=== PATIENT | male | born 1990 | race Caucasian/White ===

== ENCOUNTER 2021-11-05 19:09 | Inpatient (IN) | payer OTHER ==
[~2021-11-05] VITALS: Ht 175.3 cm; Wt 59.0 kg
[2021-11-05 20:25] LABS: BASOPHILS # (AUTO) 0.1 K/uL (0.0-0.2); BASOPHILS % (AUTO) 0.5 % (0.0-2.0); EOSINOPHILS % (AUTO) 0.1 % (0.0-6.0); HEMATOCRIT 49 % (39-51); HEMOGLOBIN 16.5 g/dL (13.5-17.5); LYMPHOCYTES # (AUTO) 0.7 K/uL (0.8-4.8); LYMPHOCYTES % (AUTO) 3.3 % (20.0-44.0); MEAN CORPUSCULAR HGB CONC 34 g/dl (31.0-36.0); MEAN CORPUSCULAR VOLUME 84 fL (80-96); MONOCYTES # (AUTO) 1.8 K/uL (0.1-1.30); MONOCYTES % (AUTO) 8.4 % (2.0-12.0); NEUTROPHILS # (AUTO) 18.7 K/uL (1.8-8.9); NEUTROPHILS % (AUTO) 87.7 % (43.0-81.0); PLATELET COUNT (AUTO) 434 K/uL (150-450); RED BLOOD CELL COUNT(AUTO) 5.85 MIL/uL (4.5-6.0); WHITE BLOOD COUNT (AUTO) 21.4 K/uL (4.3-11.0)
[2021-11-05] MEDS ORDERED: IV LR 1000 ML 1,000 ML IV ONE ×2 (20:30→21:00)
[2021-11-05 20:34] LABS: ABG PCO2 27.7 mmHg (35.0-45.0); ABG PH 7.458 (7.350-7.450); COHb 0.4 % (0.5-1.5); MetHb 0.5 % (0.0-1.5); O2Hb 77.9 % (94.0-97.0); VENT MODE, BG ROOM AIR
[2021-11-05 20:46] LABS: ALANINE AMINOTRANSFERASE 28 U/L (12-78); ALBUMIN 4.2 g/dL (3.4-5.0); ALKALINE PHOSPHATASE 76 U/L (46-116); ASPARTATE AMINOTRANSFERASE 37 U/L (15-37); BILIRUBIN,DIRECT 0.1 mg/dL (0.0-0.2); BILIRUBIN,TOTAL 0.9 mg/dL (0.2-1.0); CALCIUM, SERUM 10.1 mg/dL (8.5-10.1); CARBON DIOXIDE 22 mmol/L (21-32); CHLORIDE 94 mmol/L (98-107); CREATININE 3.4 mg/dL (0.6-1.3); GLUCOSE 283 mg/dL (74-106); LIPASE 51 U/L (73-393); POTASSIUM 3.6 mmol/L (3.5-5.1); SODIUM SERUM 142 mmol/L (136-145); TOTAL PROTEIN, SERUM 8.3 g/dL (6.4-8.2); UREA NITROGEN, BLOOD 73 mg/dL (7-18)
[2021-11-05] MEDS ORDERED: ONDANSETRON HCL/PF 4 MG/2 ML VIAL ONE (21:24)
[2021-11-05] MEDS ORDERED: CEFTRIAXONE 1GM BAG (ER ONLY) 1 GM/50 ML PIGGYBACK IV ONE (21:30)
[2021-11-05] MEDS ORDERED: ONDANSETRON HCL/PF - ER 4 MG/2 ML VIAL IV ONE (21:30)
[2021-11-05 21:34] LABS: BILIRUBIN,URINE MODERATE (NEGATIVE); COLOR,URINE YELLOW (YELLOW); LEUKOCYTE ESTERASE ,URINE NEGATIVE (NEGATIVE); NITRITE, URINE NEGATIVE (NEGATIVE); PROTEIN,URINE >=300 mg/dl (NEGATIVE); UGLUCOSE 500 MG/DL mg/dL (NEGATIVE); UROBILINOGEN,URINE 0.2 EU/dL (0.2)
[2021-11-05] MEDS ORDERED: ASPIRIN 325 MG TABLET PO ONE (22:00)
[2021-11-05] MEDS ORDERED: ASPIRIN 325 MG TABLET ONE (22:04)
[2021-11-05 22:09] LABS: BACTERIA,URINE RARE /HPF (None Seen); RBC,URINE 21-50 /HPF (0-2); SQUAMOUS EPITHELIAL CELL,UR 0-2 /HPF (None Seen); WBC,URINE 0-2 /HPF (0-3)
[2021-11-05 22:10] LABS: HYALINE CASTS, URINE Few /LPF (None Seen); MUCUS,URINE Few /LPF (None Seen); URINE AMORPHOUS URATE Few /HPF (None Seen)
[2021-11-05] MEDS ORDERED: MORPHINE SULFATE INJ 2 MG/ML DISP.SYRIN IV PRN (22:30)
[2021-11-05] MEDS ORDERED: DEXTROSE 50%-WATER 50 ML DISP.SYRIN IV PRN (22:30)
[2021-11-05] MEDS ORDERED: INSULIN REGULAR, HUMAN 100 UNIT/ML 3 ML VIAL SQ PRN (22:30)
[2021-11-05] MEDS ORDERED: ACETAMINOPHEN 325 MG TABLET PO PRN (22:30)
[2021-11-06] MEDS: BLOOD SUGAR DIAGNOSTIC 1 EACH STRIP IN SCH ×3 (00:10→12:09)
[2021-11-06] MEDS ORDERED: INSULIN REGULAR, HUMAN 100 UNIT/ML 10 ML VIAL ONE (00:35)
[2021-11-06] MEDS ORDERED: INSULIN GLARGINE, 100 UNIT/ML CARTRIDGE SQ ONE (00:41)
[2021-11-06] MEDS: INSULIN GLARGINE, 100 UNIT/ML CARTRIDGE SQ SCH ×3 (00:55→17:53)
[2021-11-06] MEDS ORDERED: DEXTROSE 50%-WATER 50 ML DISP.SYRIN IV PRN (01:00)
[2021-11-06] MEDS: *INSULIN REGULAR(HUMULIN R)HUM 100 UNIT/ML VIAL SQ PRN ×4 (01:00→22:09)
[2021-11-06 01:10] VITALS: BP 146/90
[2021-11-06] MEDS: IV NS 0.9% 1,000 ML IV SCH ×3 (01:52→09:48)
[2021-11-06] MEDS: BLOOD SUGAR DIAGNOSTIC 1 EACH STRIP VI SCH ×5 (01:53→22:05)
[2021-11-06 02:26] LABS: ALBUMIN 3.4 g/dL (3.4-5.0); BILIRUBIN,TOTAL 0.7 mg/dL (0.2-1.0); CREATININE 3.1 mg/dL (0.6-1.3); TOTAL PROTEIN, SERUM 6.9 g/dL (6.4-8.2)
[2021-11-06] MEDS: ONDANSETRON HCL/PF 4 MG/2 ML VIAL IVP PRN ×2 (03:08→10:01)
[2021-11-06 07:02] LABS: BASOPHILS % (AUTO) 0.1 % (0.0-2.0); HEMATOCRIT 43 % (39-51); HEMOGLOBIN 14.6 g/dL (13.5-17.5); LYMPHOCYTES # (AUTO) 0.7 K/uL (0.8-4.8); LYMPHOCYTES % (AUTO) 4.2 % (20.0-44.0); MEAN CORPUSCULAR HGB CONC 34 g/dl (31.0-36.0); MEAN CORPUSCULAR VOLUME 84 fL (80-96); MONOCYTES # (AUTO) 2.3 K/uL (0.1-1.30); MONOCYTES % (AUTO) 13.2 % (2.0-12.0); NEUTROPHILS # (AUTO) 14.5 K/uL (1.8-8.9); NEUTROPHILS % (AUTO) 82.5 % (43.0-81.0); PLATELET COUNT (AUTO) 329 K/uL (150-450); RED BLOOD CELL COUNT(AUTO) 5.15 MIL/uL (4.5-6.0); WHITE BLOOD COUNT (AUTO) 17.6 K/uL (4.3-11.0)
[2021-11-06 08:00] VITALS: BP 144/96
[2021-11-06 08:57] LABS: ALBUMIN 3.5 g/dL (3.4-5.0); BILIRUBIN,TOTAL 0.7 mg/dL (0.2-1.0); CALCIUM, SERUM 9.3 mg/dL (8.5-10.1); CREATININE 2.7 mg/dL (0.6-1.3); MAGNESIUM 2.6 mg/dL (1.8-2.4); PHOSPHORUS 1.9 mg/dL (2.5-4.9); POTASSIUM 3.3 mmol/L (3.5-5.1)
[2021-11-06] MEDS ORDERED: INSU100I26 SQ (09:06)
[2021-11-06] MEDS ORDERED: INSU100V36 SQ (09:06)
[2021-11-06] MEDS: HEPARIN SODIUM, PORCINE 5000 UNITS/1 ML VIAL SQ SCH ×2 (10:08→21:00)
[2021-11-06] MEDS ORDERED: METOCLOPRAMIDE HCL 10 MG/2 ML VIAL IV PRN (12:30)
[2021-11-06] MEDS ORDERED: K PHOS NEUTRAL 250 MG TABLET PO ONE (15:30)
[2021-11-06] MEDS: IV NS 0.9% 1,000 ML IV PRN (18:04)
[2021-11-06 20:32] VITALS: BP 151/96
[2021-11-06] MEDS: METOCLOPRAMIDE HCL 10 MG/2 ML VIAL IV PRN (23:34)
[2021-11-07] VITALS: BP_SYST 150
[2021-11-07] MEDS: ZOLPIDEM TARTRATE 5 MG TABLET PO PRN (01:21)
[2021-11-07 04:43] VITALS: BP 148/94
[2021-11-07] MEDS: IV NS 0.9% 1,000 ML IV PRN (04:55)
[2021-11-07] MEDS: BLOOD SUGAR DIAGNOSTIC 1 EACH STRIP VI SCH ×4 (06:03→21:38)
[2021-11-07] MEDS: IV D5/0.45 NACL 1,000 ML IV PRN ×2 (06:29→18:54)
[2021-11-07 06:35] LABS: BASOPHILS % (AUTO) 0.2 % (0.0-2.0); HEMATOCRIT 40 % (39-51); HEMOGLOBIN 13.5 g/dL (13.5-17.5); LYMPHOCYTES # (AUTO) 0.8 K/uL (0.8-4.8); LYMPHOCYTES % (AUTO) 6.2 % (20.0-44.0); MEAN CORPUSCULAR HGB CONC 34 g/dl (31.0-36.0); MEAN CORPUSCULAR VOLUME 84 fL (80-96); MONOCYTES # (AUTO) 1.6 K/uL (0.1-1.30); MONOCYTES % (AUTO) 13.3 % (2.0-12.0); NEUTROPHILS # (AUTO) 9.9 K/uL (1.8-8.9); NEUTROPHILS % (AUTO) 80.3 % (43.0-81.0); PLATELET COUNT (AUTO) 232 K/uL (150-450); WHITE BLOOD COUNT (AUTO) 12.3 K/uL (4.3-11.0)
[2021-11-07 07:08] LABS: ALBUMIN 2.9 g/dL (3.4-5.0); BILIRUBIN,TOTAL 0.7 mg/dL (0.2-1.0); CALCIUM, SERUM 7.9 mg/dL (8.5-10.1); CREATININE 1.3 mg/dL (0.6-1.3); MAGNESIUM 2.4 mg/dL (1.8-2.4); PHOSPHORUS 3.1 mg/dL (2.5-4.9); POTASSIUM 3.4 mmol/L (3.5-5.1); TOTAL PROTEIN, SERUM 6.4 g/dL (6.4-8.2)
[2021-11-07 08:00] VITALS: BP 156/89
[2021-11-07] MEDS: INSULIN GLARGINE, 100 UNIT/ML CARTRIDGE SQ SCH ×2 (09:00→17:00)
[2021-11-07] MEDS: HEPARIN SODIUM, PORCINE 5000 UNITS/1 ML VIAL SQ SCH ×2 (09:00→21:39)
[2021-11-07] MEDS: POTASSIUM CL. PREMIX PERIPHER. 50 ML IV SCH ×2 (10:20→13:32)
[2021-11-07 12:00] VITALS: BP 146/84
[2021-11-07] MEDS ORDERED: MIDAZOLAM HCL 2 MG/2ML VIAL ONE (12:09)
[2021-11-07 16:00] VITALS: BP 152/92
[2021-11-07] MEDS: INSULIN REGULAR, HUMAN 100 UNIT/ML 3 ML VIAL SQ PRN (16:58)
[2021-11-07] MEDS: METOCLOPRAMIDE HCL 10 MG/2 ML VIAL IV PRN (17:47)
[2021-11-07 20:00] VITALS: BP 142/85
[2021-11-07] MEDS: *INSULIN REGULAR(HUMULIN R)HUM 100 UNIT/ML VIAL SQ PRN (21:40)
[2021-11-08] VITALS: BP 150/96
[2021-11-08] MEDS: ZOLPIDEM TARTRATE 5 MG TABLET PO PRN (02:53)
[2021-11-08 04:00] VITALS: BP_SYST 147; BP_SYST 149; BP_DIAS 97
[2021-11-08] MEDS: IV D5/0.45 NACL 1,000 ML IV PRN (05:30)
[2021-11-08 06:17] LABS: BASOPHILS % (AUTO) 0.4 % (0.0-2.0); EOSINOPHILS % (AUTO) 0.6 % (0.0-6.0); HEMATOCRIT 38 % (39-51); HEMOGLOBIN 12.9 g/dL (13.5-17.5); LYMPHOCYTES # (AUTO) 0.7 K/uL (0.8-4.8); LYMPHOCYTES % (AUTO) 10.1 % (20.0-44.0); MEAN CORPUSCULAR HGB CONC 34 g/dl (31.0-36.0); MEAN CORPUSCULAR VOLUME 84 fL (80-96); MONOCYTES # (AUTO) 0.8 K/uL (0.1-1.30); MONOCYTES % (AUTO) 10.3 % (2.0-12.0); NEUTROPHILS # (AUTO) 5.8 K/uL (1.8-8.9); NEUTROPHILS % (AUTO) 78.6 % (43.0-81.0); PLATELET COUNT (AUTO) 178 K/uL (150-450); RED BLOOD CELL COUNT(AUTO) 4.54 MIL/uL (4.5-6.0); WHITE BLOOD COUNT (AUTO) 7.4 K/uL (4.3-11.0)
[2021-11-08] MEDS: INSULIN REGULAR, HUMAN 100 UNIT/ML 3 ML VIAL SQ PRN (06:29)
[2021-11-08] MEDS: BLOOD SUGAR DIAGNOSTIC 1 EACH STRIP VI SCH ×2 (06:30→11:47)
[2021-11-08 07:11] LABS: ALBUMIN 2.5 g/dL (3.4-5.0); BILIRUBIN,TOTAL 0.8 mg/dL (0.2-1.0); POTASSIUM 3.9 mmol/L (3.5-5.1); TOTAL PROTEIN, SERUM 5.9 g/dL (6.4-8.2)
[2021-11-08 07:39] LABS: CALCIUM, SERUM 8.4 mg/dL (8.5-10.1); MAGNESIUM 2.2 mg/dL (1.8-2.4)
[2021-11-08 07:53] LABS: PHOSPHORUS 2.2 mg/dL (2.5-4.9)
[2021-11-08 08:00] VITALS: BP 150/90
[2021-11-08] MEDS: INSULIN GLARGINE, 100 UNIT/ML CARTRIDGE SQ SCH (08:56)
[2021-11-08] MEDS: HEPARIN SODIUM, PORCINE 5000 UNITS/1 ML VIAL SQ SCH (08:56)
[2021-11-08] MEDS ORDERED: K PHOS NEUTRAL 250 MG TABLET PO ONE (09:30)
[2021-11-08] MEDS ORDERED: OMEP40CA21 PO (10:15)
[2021-11-08 12:00] VITALS: BP 157/91
== END 2021-11-08 13:30 | disposition home or self-care (01) | DRG 48 ==
LOC: ER 19:14 → TELE 11-06 00:36
PROVIDERS: ADMIT Internal Medicine
PROC: 0DB68ZX Excision of Stomach, Via Natural or Artificial Opening Endoscopic, Diagnostic (ICD-10-PCS; principal; 2021-11-07)
DX: E10.43 Type 1 diabetes mellitus with diabetic autonomic (poly)neuropathy (principal); I21.A1 Myocardial infarction type 2; E87.2 Acidosis; E83.39 Other disorders of phosphorus metabolism; E10.65 Type 1 diabetes mellitus with hyperglycemia; D72.829 Elevated white blood cell count, unspecified; K21.00 Gastro-esophageal reflux disease with esophagitis, without bleeding; N17.9 Acute kidney failure, unspecified; K31.84 Gastroparesis; E86.0 Dehydration; E87.6 Hypokalemia; Z91.19 Patient's noncompliance with other medical treatment and regimen; Z79.4 Long term (current) use of insulin; I10 Essential (primary) hypertension; R09.02 Hypoxemia; T38.3X6A Underdosing of insulin and oral hypoglycemic [antidiabetic] drugs, initial encounter; Y92.009 Unspecified place in unspecified non-institutional (private) residence as the place of occurrence of the external cause; Z91.14 Patient's other noncompliance with medication regimen
CPT/HCPCS: 36415; 36600; 71045-TC; 76770-TC; 80048-TC; 80053-TC; 80076-TC; 81001; 82010-TC; 82803-TC; 82962-TC; 83605-TC; 83690-TC; 83735-TC; 84100-TC; 84484-TC; 85025-TC; 85610-TC; 85730-TC; 86850-TC; 87040-TC; 87081-TC; 93307-TC; 94799-TC; C9803; G0378; J0696; J1644; J1815; J2250; J2405; J2704; J2765; J3480; J3490; J7030; J7120